=== PATIENT | male | born 1985 | race Caucasian/White ===

== ENCOUNTER 2018-06-13 20:05 | Emergency (ER) | payer OTHER ==
[~2018-06-13] VITALS: Ht 177.8 cm; Wt 74.8 kg
--- NOTE | 2018-06-13 21:17 | NUR ---
Patient left without being seen by ER physician. All belongings with patient. Ambulated from ER with stable gait
== END 2018-06-13 21:21 | disposition left against medical advice (07) ==
LOC: ER 20:07
DX: Z53.21 Procedure and treatment not carried out due to patient leaving prior to being seen by health care provider (principal)
CPT/HCPCS: A4663

== ENCOUNTER → 2018-06-14 | Emergency (ER) | payer OTHER ==
[~2018-06-14] VITALS: Ht 177.8 cm; Wt 74.8 kg
--- NOTE | 2018-06-14 10:02 | NUR ---
DR LARSON AT BEDSIDE FOR EVALUATION.
--- NOTE | 2018-06-14 10:17 | NUR ---
MSE [id number], PT D/C'D HOME, ACI/RX X1 GIVEN. PT AMBULATED W/O DIFF/TOOK ALL BELONGINGS.
[2018-06-14 10:19] VITALS: BP 111/44
== END | disposition home or self-care (01) ==
LOC: ER 09:53
DX: J40 Bronchitis, not specified as acute or chronic (principal); F17.200 Nicotine dependence, unspecified, uncomplicated; F12.10 Cannabis abuse, uncomplicated
CPT/HCPCS: 99283; 99406; A4663